=== PATIENT | female | born 1985 | race Caucasian/White ===

== ENCOUNTER 2022-08-15 08:49 | Emergency (ER) | payer OTHER, SELFPAY ==
[2022-08-15 08:54] VITALS: BP 151/106; PULSE 128; RESP 18; TEMP 35.9; O2SAT 97; BMI 36.3
--- NOTE | 2022-08-15 09:14 | CRLHL7_ITS ---
For Patients: As a result of the 21st Century Cures Act, medical imaging exams and procedure reports are released immediately into your electronic medical record. You may view this report before your referring provider. If you have questions, please contact your health care provider. INDICATION: Generalized abdominal pain, concern for obstruction TECHNIQUE: CT abdomen and pelvis acquired with [IV] contrast. 120 cc of Isovue 370 contrast was administered intravenously. COMPARISON: CT abdomen and pelvis 01/05/2019 FINDINGS: There is a stable 6 mm pulmonary nodule within the right lung base. There is diffuse decreased attenuation of the liver, suggestive of fatty liver. There is band like area of further decreased attenuation extending from the cassandra hepatis at the junction of the right and left hepatic lobes normal vessel seen to course through this area. At the lateral aspect of this band of decreased attenuation is a more heterogeneous focal area measuring 3.2 x 2.8 within the right hepatic lobe. There is also further decreased attenuation within the caudate. No intrahepatic biliary dilatation. The gallbladder is nondistended, however may contain sludge. The spleen and adrenal glands are unremarkable. The kidneys enhance symmetrically without hydronephrosis. There is a large cyst which appears to be arising from the pancreas, measuring 22.5 x 11.6 x 15.0 cm. This cyst nearly replaces the pancreas. There is thin scattered calcification of the wall. Mild peripancreatic inflammatory change. No dilated loops of small bowel are seen to suggest obstruction. There is mild stranding extending along the left paracolic gutter along the descending colon, likely reactive from the pancreas. No colonic wall thickening. Negative for intraperitoneal free air or fluid. The appendix is normal. Bones are unremarkble. IMPRESSION: 1. Large pancreatic pseudocyst, measuring up to 22 cm has increased from prior exam in 2019. Mild peripancreatic inflammatory change, correlate for acute pancreatitis. 2. Bandlike area of decreased attenuation within the liver at the junction of the right and left hepatic lobe. At the lateral aspect of this hypoattenuation is a more focal heterogeneous area measuring 3.2 x 2.8 cm, which could represent an underlying mass versus developing abscess with edema. Otherwise this could represent an area of more pronounced fatty chnage. Recommend correlation with LFTs and consider further initial evaluation with right upper quadrant ultrasound. 3. Nondistended gallbladder with possible sludge. Please note that all CT scans at this facility use dose modulation, iterative reconstruction, and/or weight-based dosing when appropriate to reduce radiation dose to as low as reasonably achievable. Dictated by: Ca Loja MD @ 08/15/2022 10:50:44 (Electronically Signed)
--- NOTE | 2022-08-15 09:31 | ED_ITS ---
HPI - General Adult General Date Seen: 08/15/22 Chief complaint: Abdominal Pain Stated complaint: Abdominal pain/bowel obstruction Time Seen by Provider: 08/15/22 09:08 Source: patient History of Present Illness HPI narrative: Patient is a 36-year-old woman who presents with 2 days of abdominal pain and bloating, now with vomiting. She says that she has not had a bowel movement or passed gas for 2 days. She does tell me that she had a normal appetite and full meals yesterday, and continues to feel little bit hungry today, but says that she has now developed which she says is severe episodic abdominal pain, with bouts of crampy pain throughout her abdomen, happening every 3-5 minutes. She says the pain is worst in her lower abdomen but radiates out to her upper abdomen as well as the sides of her abdomen. She says she thought she was getting a little bit constipated earlier in the week, she had 1 day where she did not have a bowel movement which is unusual for her. She denies any previous abdominal surgeries. She does have a history of pancreatitis leading to now type 1 diabetes which she manages with insulin injections. She has not had any fevers. She denies urinary symptoms. No chest pain or shortness of breath. She has not had any previous bowel obstructions or similar symptoms. Related Data Allergies Allergy/AdvReac Type Severity Reaction Status Date / Time No Known Drug Allergies Allergy Verified 08/15/22 09:00 Review of Systems Status of ROS: Reports: 10 or more systems reviewed and unremarkable except as noted in History and below [facility] Social History Smoking Status: Never smoker Second hand tobacco smoke exposure: No How often do you have a drink containing alcohol: never How often do you have six or more drinks on one occasion: Never AUDIT-C Alcohol total score: 0 Non-prescribed substance use: denies use service: No Exam Narrative: Exam Narrative: Vital signs as noted above. In general, an alert, well-appearing patient. Comfortable at the time of my exam. Head: Normocephalic, atraumatic. Eyes: Pupils are equal reactive. Extraocular movements are full. Conjunctivae are normal. ENT: Mucous membranes are moist. Throat is normal. Neck: Supple without lymphadenopathy. Heart: Regular rate and rhythm. No murmur or rub. Lungs: Clear bilaterally. No increased work of breathing, crackles or wheezes. Abdomen: Somewhat distended but soft, nontender the time of my exam. Bowel sounds absent. Extremities: Well perfused. No edema. No calf tenderness. Pulses intact. Neurologic: Patient is alert and oriented to person and place. Speech is fluent. Face is symmetric. Moves all extremities equally. Affect: Normal. Skin: Warm and dry. Well perfused. Const: Vital Signs, click to edit/add: Vital Signs - 24 hr 08/15/22 08:54 08/15/22 09:43 Temperature 96.7 F L Pulse Rate [Pulse Oximeter] 128 H 110 H Respiratory Rate 18 16 Blood Pressure [Ri ght Upper Arm] 151/106 H Pulse Oximetry 97 94 Oxygen Delivery Me thod Room Air Room Air Documenting provider has reviewed patient's vital signs: yes Course Course Hospital Course: Plan at this time is to place an IV, she request pain medications, will give morphine Toradol and Zofran as well as a L of IV fluid given her tachycardia. I am going to order a CT scan, etiology of her symptoms is a little unclear. She does not have a clear reason for bowel obstruction given absence of prior surgery, and it is little unusual that she had a normal appetite yesterday and continues to feel hungry today. This could be related to constipation. Will check a lipase and rule out further pancreatitis. Other possibilities include colitis, diverticulitis, gastritis, perforated viscus, pyelonephritis. Labs pending at this time. Labs showed a normal white blood cell count and normal CRP. Hemoglobin 14.7. Platelets normal. Metabolic panel showed a sodium of 132 and a potassium low at 2.9. Blood sugar was elevated at 282. Lactate was 2.5 magnesium was slightly low 1.3. LFTs notable for a bilirubin of 2.4, AST of 182 and ALT of 92. Alk- phos was normal. Lipase was elevated at 382. CT scan read by Radiology as showing following: There is a stable 6 mm pulmonary nodule within the right lung base. There is diffuse decreased attenuation of the liver, suggestive of fatty liver. There is band like area of further decreased attenuation extending from the cassandra hepatis at the junction of the right and left hepatic lobes normal vessel seen to course through this area. At the lateral aspect of this band of decreased attenuation is a more heterogeneous focal area measuring 3.2 x 2.8 within the right hepatic lobe. There is also further decreased attenuation within the caudate. No intrahepatic biliary dilatation. The gallbladder is nondistended, however may contain sludge. The spleen and adrenal glands are unremarkable. The kidneys enhance symmetrically without hydronephrosis. There is a large cyst which appears to be arising from the pancreas, measuring 22.5 x 11.6 x 15.0 cm. This cyst nearly replaces the pancreas. There is thin scattered calcification of the wall. Mild peripancreatic inflammatory change. No dilated loops of small bowel are seen to suggest obstruction. There is mild stranding extending along the left paracolic gutter along the descending colon, likely reactive from the pancreas. No colonic wall thickening. Negative for intraperitoneal free air or fluid. The appendix is normal. Bones are unremarkble. IMPRESSION: 1. Large pancreatic pseudocyst, measuring up to 22 cm has increased from prior exam in 2019. Mild peripancreatic inflammatory change, correlate for acute pancreatitis. 2. Bandlike area of decreased attenuation within the liver at the junction of the right and left hepatic lobe. At the lateral aspect of this hypoattenuation is a more focal heterogeneous area measuring 3.2 x 2.8 cm, which could represent an underlying mass versus developing abscess with edema. Otherwise this could represent an area of more pronounced fatty chnage. Recommend correlation with LFTs and consider further initial evaluation with right upper quadrant ultrasound. 3. Nondistended gallbladder with possible sludge. On reassessment, she has a relatively benign abdominal exam, does not have any focal right upper quadrant tenderness. We did discuss possible pancreatitis with her lipase being mildly elevated. She feels as feels quite different than her previous episode of pancreatitis which was about 4 years ago and was managed at [facility]. Her primary location of abdominal pain is in her lower abdomen, not upper. She certainly does not have any focal right upper quadrant pain. I did order a right upper quadrant ultrasound which she went on to have. This is read by Radiology as the followin. Limited examination. 2. Predominately hyperechoic lesion within the right hepatic lobe with central low attenuation, measuring 3.4 cm, corresponds to the heterogeneous area seen on the CT. This could represent a mass versus of developing abscess in the appropriate clinical setting. Recommend correlation with patient history and symptoms. This could be further characterized with MRI. 3. Large pancreatic pseudocyst. 4. Cholelithiasis without sonographic evidence of acute cholecystitis. 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 I did discuss her case briefly with Dr. Obrien who agrees that with a normal white blood cell count and normal CRP the likelihood of significant bowel pathology or cholecystitis is low. I gave her an enema here and she was able to have a bowel movement and her lower abdominal pain feels significantly better. I am not entirely sure what to make of the lesion in her liver. Given the absence of focal right upper quadrant pain, fever, or other signs of infection such as an elevated white blood cell count or inflammatory markers, my suspicion for this representing abscess is quite low. I do not know whether this is been seen on previous imaging at [facility]. She is not sure either. I have given her copies of her CT and her ultrasound on a disc as well as the reports. I have asked her to follow this up with her doctors at the [facility] and see if this is something that has been seen on previous imaging. If not, discussed with her that it will likely need to be followed up with further imaging in the form of MRI. If she were to develop symptoms such as focal right upper quadrant pain or fever, discussed with her she needs to come back for further evaluation. Given the finding of some peripancreatic inflammation on CT and the elevated lipase, did discuss with her in all likelihood she does have some component of pancreatitis. We discussed possible admission but she would prefer to see how she does at home. I am going to give her some Zofran, should stick with clears for now. Low threshold for return if she is not improving over the next 24-48 hours. I did give her potassium replacement here and she says she has had problems with low potassium in the past so she has potassium at home that she will start back on. Can also consider MiraLax for constipation. Vital Signs Vital signs: Initial Vital Signs Temperature 96.7 F L 08/15/22 08:54 Temperature Source Temporal Artery Scan 08/15/22 08:54 Pulse Rate 128 H 08/15/22 08:54 Pulse Rhythm 08/15/22 08:54 Respiratory Rate 18 08/15/22 08:54 Blood Pressure 151/106 H 08/15/22 08:54 Blood Pressure Mean 121 08/15/22 08:54 Blood Pressure Position Sitting 08/15/22 08:54 Pulse Oximetry 97 08/15/22 08:54 Oxygen Delivery Method 08/15/22 08:54 Vital Signs Temperature 96.7 F L 08/15/22 08:54 Pulse Rate 128 H 08/15/22 08:54 Respiratory Rate 18 08/15/22 08:54 Blood Pressure 151/106 H 08/15/22 08:54 Pulse Oximetry 97 08/15/22 08:54 Oxygen Delivery Method 08/15/22 08:54 Temperature 96.7 F L 08/15/22 08:54 Pulse Rate 110 H 08/15/22 09:43 Respiratory Rate 16 08/15/22 09:43 Blood Pressure 151/106 H 08/15/22 08:54 Pulse Oximetry 94 08/15/22 09:43 Oxygen Delivery Method 08/15/22 09:43 Medical Decision Making Lab Data Labs: Lab Results 08/15/22 08/15/22 08/15/22 Range/Units 09:30 09:30 09:30 WBC 7.17 (4.50-11.00) K/uL RBC 3.77 L (4.00-5.20) m/uL Hgb 14.7 (12.0-16.0) gm/dL Hct 40.2 (33.0-51.0) % MCV 107 H (80-100) fL MCH 39 H (26-34) pg MCHC 37 H (32-36) gm/dL RDW Coeff of Analia 12.5 (11.5-15.5) % Plt Count 157 (140-440) K/uL Neut % (Auto) 87.8 H (42.0-72.0) % Lymph % (Auto) 4.6 L (20-44) % Mcculloch % (Auto) 6.8 (0.0-11.0) % Eos % (Auto) 0.1 (0.0-7.0) % Baso % (Auto) 0.6 (0.0-3.0) % Neut # (Auto) 6.30 (1.7-7.0) K/uL Lymph # (Auto) 0.30 L (0.90-2.90) K/uL Mcculloch # (Auto) 0.50 (0.00-0.90) K/UL Eos # (Auto) 0.01 (0.00-0.50) K/uL Baso # (Auto) 0.04 (0.00-0.30) K/uL Abs Immat Gran (auto) 0.01 (0.00-0.30) K/uL Sodium 132 L (135-149) mmol/L Potassium 2.9 L* (3.6-5.1) mmol/L Chloride 94 L (96-114) mmol/L Carbon Dioxide 24 (20-32) mmol/L BUN 8 (5-24) mg/dL Creatinine 0.5 (0.5-1.5) mg/dL Estimated Creat Clear 170.51 Estimated GFR 123 ml/min Glucose 282 H (60-115) mg/dL Lactate 2.5 H (0.5-1.9) mmol/L Calcium 9.4 (8.4-10.6) mg/dL Magnesium (1.5-2.6) mg/dL Total Bilirubin (0.1-1.5) mg/dL Direct Bilirubin (0.0-0.5) mg/dL AST (12-35) U/L ALT (4-35) U/L Alkaline Phosphatase (40-150) U/L C-Reactive Protein 0.6 (0.5-1.0) mg/dL Total Protein (6.0-8.3) g/dL Albumin (3.3-5.0) g/dL Lipase (23-300) U/L Urine Color (Yellow) Urine Appearance (Clear) Urine pH (5.0-8.5) Ur Specific [place] (1.000-1.030) Urine Protein (Negative) Urine Glucose (UA) (Negative) Urine Ketones (Negative) Urine Blood (Negative) Urine Nitrite (Negative) Urine Bilirubin (Negative) Urine Urobilinogen (0.2-1.0) Ur Leukocyte Esterase (Negative) Urine RBC (0-2) Urine WBC (0-5) Ur Squamous Epith Cells (None-Few) Urine Bacteria (None) Urine Mucus (None) 08/15/22 08/15/22 Range/Units 09:30 09:30 WBC (4.50-11.00) K/uL RBC (4.00-5.20) m/uL Hgb (12.0-16.0) gm/dL Hct (33.0-51.0) % MCV (80-100) fL MCH (26-34) pg MCHC (32-36) gm/dL RDW Coeff of Analia (11.5-15.5) % Plt Count (140-440) K/uL Neut % (Auto) (42.0-72.0) % Lymph % (Auto) (20-44) % Mcculloch % (Auto) (0.0-11.0) % Eos % (Auto) (0.0-7.0) % Baso % (Auto) (0.0-3.0) % Neut # (Auto) (1.7-7.0) K/uL Lymph # (Auto) (0.90-2.90) K/uL M[place]ulloch # (Auto) (0.00-0.90) K/UL Eos # (Auto) (0.00-0.50) K/uL Baso # (Auto) (0.00-0.30) K/uL Abs Immat Gran (auto) (0.00-0.30) K/uL Sodium (135-149) mmol/L Potassium (3.6-5.1) mmol/L Chloride (96-114) mmol/L Carbon Dioxide (20-32) mmol/L BUN (5-24) mg/dL Creatinine (0.5-1.5) mg/dL Estimated Creat Clear Estimated GFR ml/min Glucose (60-115) mg/dL Lactate (0.5-1.9) mmol/L Calcium (8.4-10.6) mg/dL Magnesium 1.3 L (1.5-2.6) mg/dL Total Bilirubin 2.4 H (0.1-1.5) mg/dL Direct Bilirubin 1.0 H (0.0-0.5) mg/dL AST 182 H (12-35) U/L ALT 92 H (4-35) U/L Alkaline Phosphatase 98 (40-150) U/L C-Reactive Protein (0.5-1.0) mg/dL Total Protein 8.1 (6.0-8.3) g/dL Albumin 4.8 (3.3-5.0) g/dL Lipase 382 H (23-300) U/L Urine Color Brown A (Yellow) Urine Appearance Clear (Clear) Urine pH 7.5 (5.0-8.5) Ur Specific [place] 1.020 (1.000-1.030) Urine Protein 2+ A (Negative) Urine Glucose (UA) 2+ A (Negative) Urine Ketones 3+ A (Negative) Urine Blood Negative (Negative) Urine Nitrite Negative (Negative) Urine Bilirubin 2+ A (Negative) Urine Urobilinogen 4.0 (0.2-1.0) Ur Leukocyte Esterase Negative (Negative) Urine RBC 0-2 (0-2) Urine WBC 5-10 A (0-5) Ur Squamous Epith Cells Few (None-Few) Urine Bacteria Few A (None) Urine Mucus Moderate A (None) Discharge Plan Discharge Clinical Impression: Abnormal liver ultrasound, Constipation, Acute hypokalemia Patient Disposition: Home, Self-Care Condition: Improved Instructions: Constipation (DC) Additional Instructions: Consider MiraLax to help with possible constipation. Regarding your liver ultrasound, please discuss the CT/ultrasound findings with your doctor at [facility] to determine whether this needs additional follow-up in the form of MRI. At the present time, my suspicion for liver abscess is very low. However, if you develop focal right upper quadrant pain, or high fever, you should return for re-evaluation. Your lipase was slightly high today, although your symptoms are atypical for pancreatitis. If you develop more upper abdominal pain, or if you are unable to keep down liquids despite Zofran, you should likewise return for re-evaluation. You should go back on potassium replacement as previously prescribed. Follow Up/Referrals: Em Rojas MD [Primary Care Provider] - Stand Alone Forms: [facility]ys[facility] Info Instructions
[2022-08-15] MEDS: ONDANSETRON ODT 4 MG TAB PO (09:37)
[2022-08-15] MEDS: MORPHINE 4 MG/ML INJ IVP (09:37)
[2022-08-15] MEDS: KETOROLAC 15 MG/ML inj IVP (09:37)
[2022-08-15] MEDS: 0.9 % SODIUM CHLORIDE 1000 ml 1,000 ML IV (09:38)
[2022-08-15 09:43] VITALS: PULSE 110; RESP 16; O2SAT 94
--- OUTSIDE RECORDS SUMMARY | 2022-08-15 09:43 | XMS_ITS | Clinical Summary ---
:1985 Author Organization [employer] [facility] [place] [address] Care Team Providers Name Role Phone Em Rojas MD Primary Care Provider [phone] Unavailable Allergies No known active allergies Medications Medication Sig Dispensed Refills Start Date End Date Status triamcinolone Apply topically to 1 Tube 2 08/22/2013 Active (ARISTOCORT; KENALOG) affected area(s) 3 0.1 % times daily. creamIndications: Eczema Blood Pressure Test As directed. 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 diabetes mellitus type IA (HC) Blood-Glucose Meter Test as directed 0 12/13/2018 Active for four times daily. calcium carbonate Chew 1 Tablet by 0 Active (TUMS) 200 mg calcium mouth one time if (500 mg) chewable needed. tablet blood sugar 4 times daily. 0 12/13/2018 Ac tive diagnostic strip simethicone chewable Chew 80 mg by mouth 0 8 Active ([place] GAS RELIEF; 2 times daily if GAS X) 80 mg chewable needed. tablet Basaglar KwikPen Inject 21 units 15 mL 5 07/07/2022 Active U-100 Insulin 100 subcutaneous before unit/mL (3 mL) bedtime. Product penIndications: desired:BASAGLAR Insulin dependent diabetes mellitus type IA (HC) amLODIPine (NORVASC) Take 1 Tablet (5 90 Tablet 3 07/07/2022 Active 5 mg mg) by mouth once tabletIndications: daily. HTN (hypertension) glucagon (Baqsimi) 3 Inhale 1 [place] into 1 Each 0 2 Active mg/actuation nasal affected nostril(s) sprayIndications: one time for 1 patient with diabetes dose. 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 1 Overview: 09/19/2010 LSIL 10/14/2010 [place]: Squamous cellular melo es suspicious but not diagnostic for HPV 04/02/2011- LSIL 12/01/2018 NIL/HPV Negative Plan: Pap/HPV due 11/2021 Eczema 04/02/2011 Resolved Problems Problem Noted Date Resolved Date Hand dermatitis 10/28/2011 12/01/2018 Encounters Date Type Specialty Care Team Description 07/22/[address] Telehe alth (DM education) 07/22/2022 Travel 07/07/2022 Office Visit Em Rojas Physical; F darvin Edward; MD [facility] Diabetes; Medic ation Management; Ins omnia; Counseling (Dis cuss family planning and fe rtility); Immunization/In jection 07/07/2022 Travel from Last 3 Months Immunizations Name Administration Dates Next Due COVID-19 vaccine ([address] 30mcg/0.3mL) PF, 1, 02/18/2021 MDV Influenza Virus, Unspecified 09/26/2007 Influenza, IIV4 08/28/2021 Tdap 07/07/2022, 07/28/2012 Family History Medical History Relation Name Comments Pancreatitis Brother 1 Heart Disease Father age 48 Hypertension Father Other Mother rheumatoid arthr itis Other Paternal Grandmother Parkinsons disease Relation Name Status Comments Brother 1 Alive Brother 2 Alive Brother 3 Alive Father Alive Maternal Grandfather Maternal Grandmother Alive Mother Alive Paternal Grandfather Alive Paternal Grandmother Alive Social History Tobacco Use Types Packs/Day Years Used Date Never Smoker Smokeless Tobacco: Never Used Tobacco Cessation: Counseling Given: Yes Alcohol Use Standard Drinks/Week Comments Not Currently 0 (1 standard drink = 0.6 oz pure alcoho l) Sex Assigned at Date Recorded Female 06/04/2020 2:15 PM CDT COVID-19 Exposure Response Date Recorded In the last 10 days, have you been in contact with No / Unsu re 07/22/2022 8:58 AM CDT someone who was confirmed or suspected to have Coronavirus/COVID-19? Obstetrics History Para Term AB IAB SAB Ectopic Multiple Living Live Births 0 0 0 0 0 0 0 0 0 0 Last Filed Vital Signs Vital Sign Reading Time Taken Comments Blood Pressure 152/102 07/07/2022 1:57 PM CDT Pulse 115 07/07/2022 1:54 PM CDT Temperature 37.3 ??C (99.2 ??F) 07/18/2015 11:08 AM CDT Respiratory Rate - - Oxygen Saturation 98% 07/07/2022 1:54 PM CDT Inhaled Oxygen Concentration - - Weight 122 kg (268 lb 14.4 oz) 07/07/2022 1:54 PM CDT Height 180.3 cm (5' 11) 07/07/2022 1:54 PM CDT Body Mass Index 37.5 07/07/2022 1:54 PM CDT Plan of Treatment Health Maintenance Due Date Last Done Comments Pneumococcal series for age 19-64 1989 (1 - PCV) Hepatitis B series for Diabetes (1 2002 of 3 - Risk 3-dose series) Influenza for age 9-49 07/16/2022 08/28/2021, 09/26/2007 BMI (ht and wt on same day) for 07/07/2023 07/07/2022, 11/15, age 18+ 12/01/2018 Depression screening for age 12+ 07/07/2023 07/07/2022, 10/2021, 12/01/2018 Pap test for age 21-65 07/07/2025 07/07/2022, 07/07/2022, 12/01/2018, Additional history exists Tetanus booster 07/07/2032 07/07/2022, 07/28/2012, 10/28/2011 (Declined) COVID-19 vaccine series Completed 11/17/2021, 03/11/2021, 02/18/2021 Hepatitis C screening for age Completed 07/07/2022, 2021 18-79 Tdap Completed 07/07/2022, 07/28/2012 Procedures Procedure Name Priority Date/Time Associated Diagnosis Comme nts VACUUM WORKER THIN PREP PAP Routine 07/07/2022 2:20 PM Screening for cer vical Results for this SCREEN IMAGED CDT cancer procedure are in the results section. HPV THIN PREP Routine 07/07/2022 2:20 PM Screening for cervica l Results for this CDT cancer procedure are i n the results section. HCV RNA QUANT Routine 07/07/2022 1:38 PM Need for hepatitis C Results for this CDT screening test procedure are in the results section. ANTI HCV Routine 07/07/2022 1:38 PM Need for hepatitis C R esults for this CDT screening test procedure are in the results section. HEMOGLOBIN A1C Routine 07/07/2022 1:38 PM Diabetes mellitus Re sults for this CDT secondary to procedure are i n pancreatic the results insufficiency (HC) section. BASIC METABOLIC Routine 07/07/2022 1:38 PM Diabetes mellitus R esults for this PANEL CDT secondary to procedure are i n pancreatic the results insufficiency (HC) section. LIPID PANEL W Routine 07/07/2022 1:38 PM Diabetes mellitus Res ults for this REFLEX MEASURED LDL CDT secondary to procedur e are in pancreatic the results insufficiency (HC) section. from Last 3 Months Results VACUUM WORKER THIN PREP PAP SCREEN IMAGED [[id number]] (07/07/2022 2:20 PM CDT) Component Value Ref Test Analysis Performed At [facility] Range Method Time Signature Case Report Gynecologic Cytology Report ? Case: [id number] ? 07/21/2022 [facility] Authorizing Provider: ??Em Farley, ??Collected: ? 07/07/2022 1420 ? 12:53 PM HEALTH ? MD ? CDT LABORATORY-C Ordering Location: ? [facility] ?? Received: ?07/07/2022 1508 ? ENTRA L ? Clinic ? LABORATORY First Screen: ? Uziel Hernandez ? Specimen: ?VACUUM WORKER ThinPrep Vial Screening, Cervical ? INTERPRETATION NEGATIVE FOR (none) 07/21/2022 [facility] E lectronically /RESULT INTRAEPITHELIAL 12:53 PM HEALTH sign ed by LESION OR CDT LABORATORY-C Uziel Hernandez MALIGNANCY (NIL) ENTRAL on 07/21/2022 at LABORATORY 12:53 PM SPECIMEN Satisfactory for evaluation 07/21/2022 [facility] ADEQUACY Endocervical component present 12:53 PM HEALTH CDT LABORATORY-C ENTRAL LABORATORY HPV REQUEST HPV and PAP 07/21/2022 [facility] 12:53 PM HEALTH CDT LABORATORY-C ENTRAL LABORATORY Date of LMP 05/28/2022 07/21/2022 [facility] 12:53 PM HEALTH CDT LABORATORY-C ENTRAL LABORATORY Last Pap Date 12/01/18 07/21/2022 [facility] 12:53 PM HEALTH CDT LABORATORY-C ENTRAL LABORATORY Last Pap NIL 07/21/2022 [facility] Result 12:53 PM HEALTH CDT LABORATORY-C ENTRAL LABORATORY Abnormal Pap No 07/21/2022 [facility] or [place] Bx in 12:53 PM HEALTH last 5 years CDT LABORATORY-C ENTRAL LABORATORY Menstrual Irregular Periods 07/21/2022 [facility] Status 12:53 PM HEALTH CDT LABORATORY-C ENTRAL LABORATORY [place] Bx Done No 07/21/2022 [facility] Today 12:53 PM HEALTH CDT LABORATORY-C ENTRAL LABORATORY Additional None given 07/21/2022 [facility] Information 12:53 PM HEALTH CDT LABORATORY-C ENTRAL LABORATORY Comment: Cytology is screened at [facility], Central Laboratory - [address], [place] [address] and [facility] - [address] [place] [address] and [facility] - [address] [place] [address] Interpreted at [facility], Central Laboratory - [address], [place] [address] Automated Review Successful 07/21/2022 12:53 PM [facility] CDT LABORATORY-CENTRAL L ABORATORY Comment: Specimen processed successfully by automated pediatric dentist device, ThinPrep Imaging System, [employer] ANCILLARY TESTING HPV Ordered, 07/21/2022 12:53 [facility] VACUUM WORKER Please see PM CDT LABORATORY-CENTRAL separate report LABORATORY Note The pap test is a 07/21/2022 12:53 [facility] screening PM CDT LABORATORY-CENTRAL technique, not a LABORATORY diagnostic procedure. It is used primarily to screen for squamous cancers and precursor lesions. Published studies have shown that it is subject to both false negative and false positive results. The pap test should not be used as the sole means to diagnose or exclude pre-malignant and malignant lesions. Specimen Anatomical Collection Method Collection Time Receive d Time (Source) Location / / Volume Laterality Other (Cervical) Non-Blood / 07/07/2022 2:20 PM 07/07 3:08 Unknown CDT PM CDT Em Rojas MD PATHOLOGY/CYTOLOGY Performing Organization Address [facility] Phon e Number [facility] [address] [place] [address] LABORATORY-CENTRAL 2000 LABORATORY HPV HIGH RISK (07/07/2022 2:20 PM CDT) Analysis Performed At [facility] logist Time Signature TYPE 16 Negative Negative 07/09/2022 [facility] 11:59 AM CDT LABORATORY-[facility] TRAL LABORATORY TYPE 18 Negative Negative 07/09/2022 [facility] 11:59 AM CDT LABORATORY-[facility] TRAL LABORATORY OTHER HIGH Negative Negative 07/09/2022 [facility] RISK TYPES 11:59 AM CDT LABORATORY-[facility] TRAL LABORATORY Specimen Anatomical Collection Method Collection Time Receive d Time (Source) Location / / Volume Laterality Other (Cervical) Non-Blood / 07/07/2022 2:20 PM 07/08 8:03 Unknown CDT AM CDT Narrative [facility] LABORATORY-CENTRAL LABORAT ORY - 07/09/2022 11:59 AM CDT HPV types 16, 18, 31, 33, 35, 39, 45, 51, 52, 56, 58, 59, 66 and 68 DNA were undetectable or below the pre-set threshold. Methodology: Rony Bertha 4800 HPV Test Em Rojas MD MICROBIOLOGY Performing Organization Address [facility] Phon e Number [facility] [address] [place] [address] LABORATORY-CENTRAL 1999 LABORATORY (ABNORMAL) LIPID PANEL W REFLEX MEASURED LDL (07/07/2022 1:38 PM CDT) [facility] Method Time Signature CHOLESTEROL,TOTAL 249 (H) 100 - 199 07/08/2022 [facility] mg/dL 11:39 AM CDT LABORATORY-[facility] TRAL LABORATORY TRIGLYCERIDES 80 <150 07/08/2022 [facility] mg/dL 11:39 AM CDT LABORATORY-[facility] TRAL LABORATORY HDL CHOLESTEROL 127 >40 mg/dL 07/08/2022 [facility] 11:39 AM CDT LABORATORY-[facility] TRAL LABORATORY NON-HDL 122 <145 07/08/2022 [facility] CHOLESTEROL mg/dl 11:39 AM CDT LABORATORY-[facility] TRAL LABORATORY CHOL/HDL RATIO 1.96 <4.50 07/08/2022 [facility] 11:39 AM CDT LABORATORY-[facility] TRAL LABORATORY LDL CHOLESTEROL 106 <=130 07/08/2022 [facility] mg/dL 11:39 AM CDT LABORATORY-[facility] TRAL LABORATORY VLDL CHOLESTEROL 16 <=30 07/08/2022 [facility] mg/dL 11:39 AM CDT LABORATORY-[facility] TRAL LABORATORY PROVIDER ORDERED RANDOM 07/08/2022 [facility] STATUS 11:39 AM CDT LABORATORY-[facility] TRAL LABORATORY Specimen Anatomical Collection Method / Collection Time Recei darline Time (Source) Location / Volume Laterality Blood BLOOD SPECIMEN / Venipuncture / 07/07/2022 1:38 2021 1:38 Unknown Unknown PM CDT PM CDT Em Rojas MD CHEMISTRY Performing Organization Address City/[facility]/ZIP Code Phon e Number [facility] [address] [place] [address] LABORATORY-CENTRAL 2000 LABORATORY HCV RNA QUANT (07/07/2022 1:38 PM CDT) [facility] Method Time Signature HCV RNA HCV RNA not HCV RNA not 07/10/2022 [facility] RT-PCR detected detected 12:34 PM LABORATORY-CE IU/mL CDT NTRAL LABORATORY Specimen Anatomical Collection Method / Collection Time Recei darline Time (Source) Location / Volume Laterality Blood BLOOD SPECIMEN / Venipuncture / 07/07/2022 1:38 2021 1:38 Unknown Unknown PM CDT PM CDT Narrative [facility] LABORATORY-CENTRAL LABORAT ORY - 07/10/2022 12:34 PM CDT Method: ??Bertha HCV Test Em Rojas MD SEND OUTS Performing Organization Address City/State/ZIP Code Phon e Number [facility] [address] [place] [address] LABORATORY-CENTRAL 2000 LABORATORY (ABNORMAL) ANTI HCV (07/07/2022 1:38 PM CDT) Patholo gist Method Time Signature HEPATITIS C Reactive, Non-React 07/09/2022 [facility] ANTIBODY Preliminary brittney 7:04 AM CDT LABORATORY-CE Positive (A) NTRAL LABORATORY Comment: Presumptive evidence of antibod ies to HCV. Reflexed to HCV RNA Quant (See separate report). Specimen Anatomical Collection Method / Collection Time Recei darline Time (Source) Location / Volume Laterality Blood BLOOD SPECIMEN / Venipuncture / 07/07/2022 1:38 2021 1:38 Unknown Unknown PM CDT PM CDT Em Rojas MD SEND OUTS Performing Organization Address City/[facility]/ZIP Code Phon e Number [facility] [address] [place] [address] LABORATORY-CENTRAL 2000 LABORATORY HEMOGLOBIN A1C MONITORING (POCT) (07/07/2022 1:38 PM CDT) athologist Signature HEMOGLOBIN A1C 6.2 <=6.4 % 07/07/2022 [facility] MONITORING 1:48 PM CDT [place] (POCT) [facility] Specimen Anatomical Collection Method / Collection Time Recei darline Time (Source) Location / Volume Laterality Blood BLOOD SPECIMEN / Venipuncture / 07/07/2022 1:38 2021 1:38 Unknown Unknown PM CDT PM CDT Narrative [facility] - 2021 1:48 PM CDT ? (<=6.9%) ? Indicates good control ? (7.0% to 7.9%) ? Indicates fa ir control ? (>=8.0%) ? Indicates poor control ?? NOTE: ??These thresholds are guideli jazmyne and ?individual targets may va ry. Falsely low levels may be seen with: Recent Transfusion, Recent Significant B lood Loss, Hemolytic Diseases, or Falsely elevated levels may be seen with : Untreated Anemias, Splenectomy ? Em Rojas MD CHEMISTRY Performing Organization Address City/State/ZIP Code Phon e Number [facility] [address] [place] [address] (ABNORMAL) BASIC METABOLIC PANEL (07/07/2022 1:38 PM CDT) Analysis Performed At Patho logist Time Signature SODIUM 141 135 - 145 07/08/2022 [facility] mmol/L 11:37 AM CDT LABORATORY-[facility] TRAL LABORATORY POTASSIUM 3.7 3.5 - 5.0 07/08/2022 [facility] mmol/L 11:37 AM CDT LABORATORY-[facility] TRAL LABORATORY CHLORIDE 104 98 - 110 07/08/2022 [facility] mmol/L 11:37 AM CDT LABORATORY-[facility] TRAL LABORATORY CO2,TOTAL 22 21 - 31 07/08/2022 [facility] mmol/L 11:37 AM CDT LABORATORY-[facility] TRAL LABORATORY ANION GAP 15 5 - 18 07/08/2022 [facility] 11:37 AM CDT LABORATORY-[facility] TRAL LABORATORY GLUCOSE 270 (H) 65 - 100 07/08/2022 [facility] mg/dL 11:37 AM CDT LABORATORY-[facility] TRAL LABORATORY CALCIUM 9.1 8.5 - 10.5 07/08/2022 [facility] mg/dL 11:37 AM CDT LABORATORY-[facility] TRAL LABORATORY BUN 9 8 - 25 07/08/2022 [facility] mg/dL 11:37 AM CDT LABORATORY-[facility] TRAL LABORATORY CREATININE 0.86 0.57 - 07/08/2022 [facility] 1.11 mg/dL 11:37 AM CDT LABORATORY-[facility] TRAL LABORATORY BUN/CREAT RATIO 10 10 - 20 07/08/2022 [facility] 11:37 AM CDT LABORATORY-[facility] TRAL LABORATORY eGFR 89 (L) >90 07/08/2022 [facility] mL/min/1.7 11:37 AM CDT LABORATORY-[facility] 3m2 TRAL LABORATORY Comment: As of 2022, eGFR is calcu lated by the CKD-EPI creatinine equation without race adjustment. eGFR can be inf luenced by muscle mass, exercise, and diet. The reported eGFR is an estimation only and is only applicable if the renal function is stable. Specimen Anatomical Collection Method / Collection Time Recei darline Time (Source) Location / Volume Laterality Blood BLOOD SPECIMEN / Venipuncture / 07/07/2022 1:38 2021 1:38 Unknown Unknown PM CDT PM CDT Em Rojas MD CHEMISTRY Performing Organization Address City/State/ZIP Code Phon e Number [email or web address] [address] 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
[2022-08-15 09:53] LABS: Lactate* 2.5 mmol/L (0.5-1.9)
[2022-08-15 09:56] LABS: Appearance Urine Clear (Clear); Bilirubin Urine 2+ (Negative); Blood Urine Negative (Negative); Color Urine Brown (Yellow); Glucose Urine 2+ (Negative); Ketones Urine 3+ (Negative); Leukocyte Esterase Urine Negative (Negative); Nitrite Urine Negative (Negative); Protein Urine 2+ (Negative); pH Urine 7.5 (5.0-8.5)
[2022-08-15 09:58] LABS: Basophils Absolute Auto 0.04 K/uL (0.00-0.30); Basophils Percent Auto 0.6 % (0.0-3.0); Eosinophils Absolute Auto 0.01 K/uL (0.00-0.50); Eosinophils Percent Auto 0.1 % (0.0-7.0); Hematocrit 40.2 % (33.0-51.0); Hemoglobin* 14.7 gm/dL (12.0-16.0); Immature Granulocytes Abs Auto 0.01 K/uL (0.00-0.30); Lymphocytes Percent Auto 4.6 % (20-44); Mean Corpuscular HGB Conc 37 gm/dL (32-36); Mean Corpuscular Hemoglobin 39 pg (26-34); Mean Corpuscular Volume 107 fL (80-100); Monocytes Percent Auto 6.8 % (0.0-11.0); Neutrophils Percent Auto 87.8 % (42.0-72.0); Platelet Count* 157 K/uL (140-440); RDW Coefficient of Variation % 12.5 % (11.5-15.5); Red Blood Count 3.77 m/uL (4.00-5.20); White Blood Count* 7.17 K/uL (4.50-11.00)
[2022-08-15 10:07] LABS: RBC Urine 0-2 (0-2)
[2022-08-15 10:08] LABS: Bacteria Urine Few; Mucus Urine Moderate; Squamous Epithelial Cell Urine Few (None-Few)
[2022-08-15 10:19] LABS: Albumin* 4.8 g/dL (3.3-5.0)
[2022-08-15 10:22] LABS: Alanine Aminotransferase* 92 U/L (4-35); Alkaline Phosphatase* 98 U/L (40-150); Aspartate Amino Transferase* 182 U/L (12-35); Bilirubin Total* 2.4 mg/dL (0.1-1.5); Lipase* 382 U/L (23-300); Magnesium* 1.3 mg/dL (1.5-2.6); Total Protein* 8.1 g/dL (6.0-8.3)
--- NOTE | 2022-08-15 11:09 | CRLHL7_ITS ---
For Patients: As a result of the Century Cures Act, medical imaging exams and procedure reports are released immediately into your electronic medical record. You may view this report before your referring provider. If you have questions, please contact your health care provider. INDICATION: Abdominal pain, abnormal appearance of the liver on recent CT. TECHNIQUE: Ultrasound abdomen limited. Sonographic images of the right upper quadrant were obtained using fuchs-scale and color Doppler images. COMPARISON: CT abdomen and pelvis earlier same date 08/15/2022. FINDINGS: Evaluation is limited. The liver demonstrates diffuse increased echogenicity, suggestive of hepatic steatosis. Corresponding to the heterogeneous area seen on the CT is a focal area with peripheral increased echogenicity and a central hypoechoic area measuring 3.1 x 3.4 x 2.8 cm. The gallbladder is nondistended. A few gallstones are present. No gallbladder wall thickening or pericholecystic fluid. The common bile duct measures 0.3 cm. The right kidney measures 12.2 cm. Negative for hydronephrosis. Large cysts within the mid abdomen measuring 20 x 13 cm, corresponds listhesis seen on the CT. IMPRESSION: 1. Limited examination. 2. Predominately hyperechoic lesion within the right hepatic lobe with central low attenuation, measuring 3.4 cm, corresponds to the heterogeneous area seen on the CT. This could represent a mass versus of developing abscess in the appropriate clinical setting. Recommend correlation with patient history and symptoms. This could be further characterized with MRI. 3. Large pancreatic pseudocyst. 4. Cholelithiasis without sonographic evidence of acute cholecystitis. Dictated by Ca Loja MD @ 08/15/2022 1:59:09 PM Dictated by: Ca Loja MD @ 08/15/2022 13:59:40 (Electronically Signed)
[2022-08-15 12:15] LABS: Slide Review Reflex No
[2022-08-15 12:18] LABS: Chloride* 94 mmol/L (96-114); Sodium* 132 mmol/L (135-149)
[2022-08-15 12:21] LABS: Blood Urea Nitrogen* 8 mg/dL (5-24); Carbon Dioxide* 24 mmol/L (20-32); Creatinine* 0.5 mg/dL (0.5-1.5); Est. Creatinine Clearance* 170.51; Estimated Glomerular Filt Rate 123 ml/min; Glucose* 282 mg/dL (60-115)
[2022-08-15 12:22] LABS: Calcium* 9.4 mg/dL (8.4-10.6); Potassium* 2.9 mmol/L (3.6-5.1)
[2022-08-15 12:24] LABS: C Reactive Protein* 0.6 mg/dL (0.5-1.0)
[2022-08-15] MEDS: 0.9 % SODIUM CHLORIDE 1000 ml 1,000 ML 125 ML IV (12:54)
[2022-08-15] MEDS: POTASSIUM BICARB 25 MEQ EFFERVESCENT TAB 50 MEQ PO (12:54)
[2022-08-15] MEDS: DOCUSATE SODIUM/BENZOCAINE 5 ML ENEMA PR (14:02)
== END 2022-08-15 15:31 | disposition home or self-care (01) ==
PROVIDERS: Emergency Provider Emergency Medicine; PCP Family Medicine
DX: R93.2 Abnormal findings on diagnostic imaging of liver and biliary tract (principal); K59.00 Constipation, unspecified; E87.6 Hypokalemia; E10.8 Type 1 diabetes mellitus with unspecified complications; Z79.4 Long term (current) use of insulin
CPT/HCPCS: 36415; 74177; 76705; 80048; 80076; 81001; 83605; 83690; 83735; 85025; 86140; 87086; 96361; 96374; 96375; 99284; 99285; A9270; J1885; J2270; J7030; Q9967